=== PATIENT | male | born 2000 | race Hispanic/Latino ===

== ENCOUNTER 2024-08-11 17:18 | Inpatient (IN) | payer SELFPAY ==
[2024-08-11 20:23] LABS: Absolute Eosinophils 0.1 K/uL (0-0.5); Absolute Lymphocytes (CBC) 2.7 K/uL (0.7-4.9); Absolute Neutrophil 5.7 K/uL (1.8-8.0); Basophils % 0.2 % (0-1.3); Eosinophils % 0.6 % (0-4.4); Hemoglobin 11.2 g/dL (13.6-17.9); Lymphocytes % 28.2 % (15.3-44.8); MCH 28.7 pg (27.0-35.0); MCHC 33.8 g/dL (32.0-36.0); MCV 84.8 fL (80-100); MPV 6.9 fL (7.6-11.3); Monocytes % 10.8 % (3.3-12.3); Neutrophils % 60.2 % (41.7-73.7); Nucleated Red Blood Cells % 0.1 % (0-0); Platelets 387 thou/uL (152-406); RBC Red Blood Cell Count 3.89 M/uL (4.33-5.43); Red Cell Distribution Width 14.1 % (12.1-15.2)
[2024-08-11 20:36] LABS: PT Prothrombin Time 13.3 SECONDS (9.4-12.5); Protime INR 1.19
[2024-08-11 20:43] LABS: Albumin 4.1 g/dL (3.4-5.0); Anion Gap 6.7 mEq/L (5.0-15.0); Bilirubin Total 0.3 mg/dL (0.2-1.0); Potassium 3.7 mEq/L (3.5-5.1); Protein, Total 8.1 g/dL (6.4-8.2)
[2024-08-11] MEDS ORDERED: NA CHLORIDE 0.9% 50 ML ONE (20:54)
[2024-08-11] MEDS ORDERED: PANTOPRAZOLE 40 MG INJ ONE (20:54)
[2024-08-11] MEDS ORDERED: NA CHLORIDE 0.9% 1,000 ML ONE (20:54)
[2024-08-11 21:07] LABS: Specific Gravity 1.021 (1.005-1.030); Urine Bilirubin NEGATIVE (Negative); Urine Blood Negative (Negative); Urine Clarity Clear (Clear); Urine Color Colorless (Yellow); Urine Glucose NEGATIVE (Negative); Urine Ketones NEGATIVE (Negative); Urine Microscopic Reflex YN NO UMIC; Urine Nitrite NEGATIVE (Negative); Urine Protein NEGATIVE (Negative); Urine Urobilinogen Normal (Normal); Urine pH 6.5 (5.0-7.0)
--- NOTE | 2024-08-11 21:51 | RAD REPORT ---
EXAMINATION: CT Abdomen Pelvis W Contrast CLINICAL INDICATION: Male, 24 years old. GI BLEED TECHNIQUE: CT abdomen and pelvis was performed, after the administration of IV contrast, as per [facility] protocol. Axial, sagittal and coronal reconstructions were obtained. One or more of the following dose reduction techniques were used: Automated exposure control, adjustment of the mA and k V according to patient size, and iterative reconstruction. Unless otherwise specified, incidental findings do not require dedicated imaging follow-up. COMPARISON: No prior exam. FINDINGS: LOWER CHEST: The visualized lung bases are clear. LIVER: Normal in size and contour. Innumerable small hypoattenuating parenchymal lesions, largest piedad suring 11 mm, suggestive of cysts although difficult to characterize given small size. No other suspicious focal lesion. BILIARY SYSTEM: No suspicious abnormalities. SPLEEN: Normal size. No focal lesion. PANCREAS: No mass, ductal dilation, or kamla-pancreatic fluid. ADRENALS: Normal; no mass. KIDNEYS: Normal size and contour. No hydronephrosis. URINARY BLADDER: Unremarkable. GASTROINTESTINAL TRACT: No evidence of free air, significant intra-abdominal free fluid, bowel obstru ction or abscess. APPENDIX: Normal appendix. LYMPH NODES: No lymphadenopathy. MUSCULOSKELETAL: No acute or suspicious osseous abnormality. ADDITIONAL FINDINGS: None. IMPRESSION: No acute or concerning abnormalities seen in the abdomen or pelvis. Incidentally noted presumed numerous small liver cysts, overall benign in appearance.
[2024-08-11 23:02] LABS: Hematocrit 23.6 % (39.6-49.0); Hemoglobin 7.9 g/dL (13.6-17.9); MCH 28.4 pg (27.0-35.0); MCHC 33.2 g/dL (32.0-36.0); MCV 85.6 fL (80-100); MPV 7.5 fL (7.6-11.3); Platelets 305 thou/uL (152-406); RBC Red Blood Cell Count 2.76 M/uL (4.33-5.43)
--- NOTE | 2024-08-11 23:09 | EDPHYS ---
Physician Documentation [facility] Name: Dk Brand Age: 24 yrs Sex: Male : 2000 Arrival Date: 08/11/2024 Time: 17:18 Bed 17 Private MD: ED Physician Juan Foreman HPI: 08/11 18:24 This 24 yrs old Male presents to ER via Ambulatory with complaints of Vomiting sb4 blood. 18:24 Patient states that he has had dark stools for 2 days now and started experiencing sb4 blood in his vomit last night. States that this has happened in the past before and he was diagnosed with gastric ulcers. States that he is not on any medications daily. Denies requiring any blood transfusions in the past. He does report some intermittent epigastric pain. He denies any alcohol use or history of liver disease. Historical: - Allergies: 18:20 No Known Allergies; ss - Home Meds: 18:20 None [Active]; ss - PMHx: 18:20 None; ss - PSHx: 18:20 None; ss - Immunization history:: Adult Immunizations up to date. - Infectious Disease History:: Denies. - Social history:: Smoking status: Patient denies any tobacco usage or history of. Patient/guardian denies using alcohol. ROS: 18:25 Constitutional: Negative for fever, chills, and weight loss, sb4 18:25 Abdomen/GI: Positive for abdominal pain, hematemesis, Melena, 18:25 All other systems are negative, Exam: 18:26 Constitutional: This is a well developed, well nourished patient who is awake, alert, sb4 and in no acute distress. Head/Face: Normocephalic, atraumatic. Eyes: Extra-ocular motions intact. Periorbital areas with no swelling, redness, or edema. ENT: Mucous membranes moist. Respiratory: No increased work of breathing, no retractions or nasal flaring. Abdomen/GI: Soft, non-tender, no distension. Skin: Warm, dry with normal turgor. Normal color with no rashes, no lesions, and no evidence of cellulitis. 18:26 Cardiovascular: Rate: tachycardic, Rhythm: regular, Vital Signs: 18:17 BP 134 / 93; Pulse 113; Resp 16; Temp 98.4(TE); Pulse Ox 100% on R/A; Height 5 ft. 3 ss in. ; Pain 6/10; 23:48 BP 108 / 62; Pulse 100; Resp 17; Pulse Ox 100% on R/A; rg5 08/12 00:10 BP 110 / 67; Pulse 76; Resp 17; Pulse Ox 100% on R/A; rg5 01:00 BP 107 / 68; Pulse 72; Resp 18; Pulse Ox 100% on R/A; Pain 0/10; rg5 08/11 18:17 Pain Scale: Adult ss 01:00 Pain Scale: Adult [facility] MDM: 08/11 18:22 Medical Screening Exam initiated sb4 23:08 Data reviewed: vital signs, nurses notes, lab test result(s), radiologic studies, and sb4 as a result, I will admit patient. Consideration of Admission/Observation Patient was admitted/placed on observation. Counseling: I had a detailed discussion with the patient and/or guardian regarding the historical points, exam findings, and any diagnostic results supporting the discharge/admit diagnosis, lab results, radiology results, the need for further work-up and treatment in the hospital. 23:22 Management of patient was discussed with the following: After School Driver: Dr. Pino, agrees sb4 to consult. 08/11 18:23 Order name: CBC with Diff; Complete Time: 20:31 sb4 08/11 18:23 Order name: CMP; Complete Time: 20:43 sb4 08/11 18:23 Order name: Lipase; Complete Time: 20:43 sb4 08/11 18:23 Order name: Urinalysis w/ reflexes; Complete Time: 21:08 sb4 08/11 18:23 Order name: Type And Screen sb4 08/11 18:23 Order name: PT-INR; Complete Time: 20:38 sb4 08/11 18:23 Order name: Ptt, Activated; Complete Time: 20:38 sb4 08/11 21:51 Order name: CBC w/o diff; Complete Time: 23:04 sb4 08/12 00:03 Order name: Creatine Phosphokinase EDMO 08/12 00:03 Order name: Lactate w/ 2H reflex if indic. EDMO 08/12 00:03 Order name: Liver (Hepatic) Function EDMO 08/12 00:03 Order name: Magnesium EDMO 08/12 00:03 Order name: Phosphorus EDMO 08/12 00:03 Order name: Thyroid Stimulating Hormone EDMO 08/12 00:03 Order name: Urinalysis w/ reflexes EDMO 08/12 00:04 Order name: Gastrin EDMO 08/12 00:05 Order name: H.PYLORI AG EDMO 08/12 02:39 Order name: CBC with Automated Diff EDMO 08/12 05:33 Order name: Ghost Lactate-NO COLLECT Timer EDMO 08/12 08:04 Order name: Lactate Sepsis 2 HR Follow-up EDMO 08/12 08:37 Order name: ABO/RH no charge EDMO 08/11 18:23 Order name: CT Abd/Pelvis - IV Contrast Only; Complete Time: 21:51 sb4 08/12 00:03 Order name: CONS Physician Consult EDMO 08/11 18:23 Order name: IV Saline Lock; Complete Time: 20:52 sb4 08/11 18:23 Order name: Labs collected and sent; Complete Time: 20:52 sb4 Administered Medications: 21:02 Drug: NS 0.9% IV 1000 ml IV at 1 bolus Per protocol; to be given as a bolus over 60 vc1 minutes Route: IV; Rate: 1 bolus; Site: right antecubital; 22:00 Follow up: IV Status: Completed infusion; IV Intake: 1000ml vc1 21:02 Drug: Pantoprazole IVP 40 mg IVP once Route: IVP; Site: right antecubital; vc1 21:30 Follow up: Response: No adverse reaction vc1 23:40 Drug: Pantoprazole IV 8 mg/hr IV at 25 ml/hr continuous; (Standard dilution is 80 mg in rg5 250 mL NS) Route: IV; Rate: 25 ml/hr; Site: right antecubital; Disposition Summary: 08/11/24 23:09 Hospitalization Ordered Notes: Hospitalization Status: Inpatient Admission sb4 Provider: David Lenz sbNaomi Condition: Fair sb4 Problem: new sb4 Symptoms: have worsened sb4 Bed/Room Type: Standard sb4 Location: Intensive Care Unit(08/12/24 10:48) bd Room Assignment: 6-(08/12/24 10:48) bd Diagnosis - GI Bleed/ Gastrointestinal hemorrhage, unspecified sb4 - Anemia, unspecified sb4 Forms: - Medication Reconciliation Form sb4 - SBAR form sb4 - Leadership Thank You Letter sb4 Signatures: Dispatcher [employer] EDMS July Jenkins bd Susan Dwyer, RN RN ss Carey Thrasher, RN RN vc1 Vaishnavi Greer, PARafaelaC PARafaelaC sb4 Goldberg Kassie rv1 Sujit Crandall, RN RN rg5 Corrections: (The following items were deleted from the chart) 18:24 18:24 CBC+H.LAB.BRZ ordered. EDMS EDMS 18:24 18:24 COMPREHENSIVE METABOLIC PANEL+C.LAB.BRZ ordered. EDMS EDMS 18:24 18:24 LIPASE+C.LAB.BRZ ordered. EDMS EDMS 18:24 18:24 Urinalysis+U.LAB.BRZ ordered. EDMS EDMS 18:24 18:24 TYPE AND SCREEN+BB.LAB.BRZ ordered. EDMS EDMS 18:24 18:24 PROTIME (+INR)+COAG.LAB.BRZ ordered. EDMS EDMS 18:24 18:24 PTT, ACTIVATED+COAG.LAB.BRZ ordered. EDMS EDMS 18:24 18:24 Abdomen Pelvis W Con+CT.RAD.BRZ ordered. EDMS EDMS 23:27 23:09 Telemetry/MedSurg (Inpatient) sb4 rv1 23:27 23:09 sb4 rv1 08/12 10:48 08/11 23:27 [facility] ER HOLD rv1 bd 08/12 10:48 08/11 23:27 ERHOLD- rv1 bd
--- NOTE | 2024-08-11 23:09 | ER ---
Nurse's Notes [facility] Name: Dk Brand Age: 24 yrs Sex: Male : 2000 Arrival Date: 08/11/2024 Time: 17:18 Bed 17 Private MD: Diagnosis: GI Bleed/ Gastrointestinal hemorrhage, unspecified;Anemia, unspecified Presentation: 08/11 18:17 Chief complaint: Patient states: Vomiting dark blood that began at midnight, stopped at ss 4 am and dark stools since yesterday. Pt reports a hx of peptic ulcers since he was 5 and a similar that occurred 1 year ago. Coronavirus screen: Client denies travel out of the [place] in the last 14 days. Ebola Screen: Patient denies exposure to infectious person. Patient denies travel to an Ebola-affected area in the 21 days before illness onset. Initial Sepsis Screen: Does the patient meet any 2 criteria? No. Patient's initial sepsis screen is negative. Does the patient have a suspected source of infection? No. Patient's initial sepsis screen is negative. Risk Assessment: Do you want to hurt yourself or someone else? Patient reports no desire to harm self or others. Onset of symptoms was August 10, 2024. 18:17 Method Of Arrival: Ambulatory ss 18:17 Acuity: MANJIT 3 ss Triage Assessment: 19:30 General: Appears in no apparent distress. uncomfortable, slender, well groomed, vc1 Behavior is calm, cooperative, appropriate for age. GI: Reports vomiting, vomiting blood. Historical: - Allergies: 18:20 No Known Allergies; ss - Home Meds: 18:20 None [Active]; ss - PMHx: 18:20 None; ss - PSHx: 18:20 None; ss - Immunization history:: Adult Immunizations up to date. - Infectious Disease History:: Denies. - Social history:: Smoking status: Patient denies any tobacco usage or history of. Patient/guardian denies using alcohol. Screenin:30 [facility] ED Fall Risk Assessment (Adult) History of falling in the last 3 months, vc1 including since admission No falls in past 3 months (0 pts) Confusion or Disorientation No (0 pts) Intoxicated or Sedated No (0 pts) Impaired Gait No (0 pts) Mobility Assist Device Used No (0 pt) Altered Elimination No (0 pt) Score/Fall Risk Level 0 - 2 = Low Risk Oriented to surroundings, Maintained a safe environment, Educated pt \T\ family on fall prevention, incl call for assistance when getting out of bed. Abuse screen: Denies threats or abuse. Nutritional screening: No deficits noted. Tuberculosis screening: No symptoms or risk factors identified. Vital Signs: 18:17 BP 134 / 93; Pulse 113; Resp 16; Temp 98.4(TE); Pulse Ox 100% on R/A; Height 5 ft. 3 ss in. ; Pain 6/10; 23:48 BP 108 / 62; Pulse 100; Resp 17; Pulse Ox 100% on R/A; rg5 08/12 00:10 BP 110 / 67; Pulse 76; Resp 17; Pulse Ox 100% on R/A; rg5 01:00 BP 107 / 68; Pulse 72; Resp 18; Pulse Ox 100% on R/A; Pain 0/10; rg5 08/11 18:17 Pain Scale: Adult ss 01:00 Pain Scale: Adult rg5 ED Course: 08/11 17:22 Patient arrived in ED. mr 17:24 Vaishnavi Greer PA-C is PHCP. sb4 17:24 Juan Foreman MD is Attending Physician. sb4 18:20 Triage completed. ss 18:20 Arm band placed on right wrist. ss 19:30 Patient has correct armband on for positive identification. Bed in low position. Call vc1 light in reach. Pulse ox on. NIBP on. 21:19 CT Abd/Pelvis - IV Contrast Only In Process Unspecified. EDMS 22:54 CBC w/o diff Sent. vk 22:55 Inserted saline lock: 20 gauge in right antecubital area, using aseptic technique. vk Blood collected. Flushed with 10 mL NS. 23:08 David Lenz is Hospitalizing Provider. sb4 23:47 Sujit Crandall, SHAYNA is Primary Nurse. rg5 08/12 02:00 Provided Education on: needs for admit. rg5 02:00 No provider procedures requiring assistance completed. Patient admitted, IV remains in rg5 place. 05:00 Warm blanket given. oe Administered Medications: 08/11 21:02 Drug: NS 0.9% IV 1000 ml IV at 1 bolus Per protocol; to be given as a bolus over 60 vc1 minutes Route: IV; Rate: 1 bolus; Site: right antecubital; 22:00 Follow up: IV Status: Completed infusion; IV Intake: 1000ml vc1 21:02 Drug: Pantoprazole IVP 40 mg IVP once Route: IVP; Site: right antecubital; vc1 21:30 Follow up: Response: No adverse reaction vc1 23:40 Drug: Pantoprazole IV 8 mg/hr IV at 25 ml/hr continuous; (Standard dilution is 80 mg in rg5 250 mL NS) Route: IV; Rate: 25 ml/hr; Site: right antecubital; Medication: 19:30 VIS not applicable for this client. vc1 Intake: 22:00 IV: 1000ml; Total: 1000ml. vc1 Outcome: 23:09 Decision to Hospitalize by Provider. sb4 11 02:00 Admitted to ER Hold. Please see Clicker for further documentation. rg5 Condition: stable Instructed on the need for admit, 12:01 Patient left the ED. ph Signatures: Dispatcher [employer] EDKS Andria Clemens, Reg Reg mr Susan Dwyer, RN RN ss Shanthi Bazan RN RN ph Nicko Baldrerama Vanessa, RN RN vc1 Vaishnavi Greer PA-C PA-C sb4 Ayala Kaufman Rommel, RN RN rg5
[2024-08-11] MEDS: NA CHLORIDE 0.9% 1,000 ML IV SCH (23:45)
[2024-08-11] MEDS ORDERED: ACETAMINOPHEN 325 MG TABLET PO PRN (23:58)
[2024-08-11] MEDS ORDERED: ONDANSETRON 4 MG/2 ML VIAL IV PRN (23:58)
[2024-08-12] MEDS ORDERED: SODIUM CHLORIDE 0.9% 10ML INJ IV PRN (00:03)
--- NOTE | 2024-08-12 00:16 | P.HP ---
Certification for Inpatient With expected LOS: <2 Midnights Practitioner: I am a practitioner with admitting privileges, knowledge of patient current condition, hospital course, and medical plan of care. Services: Services provided to patient in accordance with Admission requirements found in Title 42 Section 412.3 of the Code of Federal Regulations Patient History Date of Service: 08/12/24 Reason for admission: GI bleed History of Present Illness: 24-year-old man with a past medical history significant for gastric ulcers [facility] complaining of hematemesis x 1 day. The patient is Qatari-speaking, and language line interpretation services were utilized for Qatari interpretation. Language ID [id number]. The patient states he began vomiting coffee ground contents last night. Also, he reports dark stools for the past 2 days consistent with melena. He denies hematochezia. The patient has not attempted anything to alleviate his vomiting and states nothing worsens. Patient states he is a never smoker and does not drink alcohol. Home medications list reviewed: Yes (none) - Past Medical/Surgical History Diabetic: No -: gastric ulcers Past Surgical History: Patient denies surgical history - Family History Family History: Reviewed- Non-Contributory - Social History Smoking Status: Never smoker Alcohol use: No Review of Systems Gastrointestinal: Vomiting, Abdominal Pain, Melena Physical Examination - Vital Signs Temperature: 98.4 F Blood Pressure: 108/62 Pulse: 78 Respirations: 18 Pulse Ox (%): 100 (on room air) - Physical Exam General: Alert, Oriented x3 HEENT: Atraumatic, Normocephalic Neck: JVD not distended Respiratory: Clear to auscultation bilaterally Cardiovascular: No edema, Regular rate/rhythm, No gallops, No rubs, No murmurs Gastrointestinal: Normal bowel sounds, Non-distended, Tenderness (epigrastric abdominal quadrant) Musculoskeletal: No swelling, No erythema, No tenderness, No warmth Neurological: Normal strength at 5/5 x4 extr, Sensation intact - Studies Laboratory Data (last 24 hrs) 08/11/24 08/11/24 08/11/24 22:48 20:11 20:11 WBC 7.70 Hgb 7.9 L D Hct 23.6 L Plt Count 305 PT 13.3 H INR 1.19 APTT 37.0 H Sodium 137 Potassium 3.7 BUN 19 H Creatinine 0.73 Glucose 85 Total Bilirubin 0.3 AST 14 L ALT 19 Alkaline Phosphatase 50 Lipase 21 08/11/24 20:11 WBC 9.50 Hgb 11.2 L Hct 33.0 L Plt Count 387 PT INR APTT Sodium Potassium BUN Creatinine Glucose Total Bilirubin AST ALT Alkaline Phosphatase Lipase Assessment and Plan - Problems (Diagnosis) (1) GI (gastrointestinal bleed) Current Visit: Yes Status: Acute Qualifiers: GI bleed type/associated pathology: melena Qualified Code(s): K92.1 - Melena - Plan Upper GI bleed: Gastroenterology consulted- Dr. Pino NPO diet IVF ordered Pantoprazole ordered Type and screen ordered H. pylori test ordered Gastrin level ordered Lab work ordered to trend Nursing order placed to transfuse if morning lab hemoglobin returns less than 7 - Advance Directives Does patient have a Living Will: No Does patient have a Durable POA for Healthcare: No
[2024-08-12] MEDS ORDERED: NA CHLORIDE 0.9% 250 ML ONE ×2 (00:17→02:30)
[2024-08-12] MEDS ORDERED: PANTOPRAZOLE 40 MG INJ ONE ×2 (00:17→09:44)
[2024-08-12 02:34] LABS: Absolute Eosinophils 0.1 K/uL (0-0.5); Absolute Lymphocytes (CBC) 2.8 K/uL (0.7-4.9); Absolute Monocytes 0.9 K/uL (0.1-1.3); Absolute Neutrophil 4.4 K/uL (1.8-8.0); Basophils % 0.3 % (0-1.3); Eosinophils % 1.4 % (0-4.4); Hematocrit 29.5 % (39.6-49.0); Hemoglobin 9.9 g/dL (13.6-17.9); Lymphocytes % 34.2 % (15.3-44.8); MCH 28.8 pg (27.0-35.0); MCHC 33.6 g/dL (32.0-36.0); MCV 85.5 fL (80-100); MPV 7.4 fL (7.6-11.3); Monocytes % 10.6 % (3.3-12.3); Neutrophils % 53.5 % (41.7-73.7); Platelets 331 thou/uL (152-406); RBC Red Blood Cell Count 3.45 M/uL (4.33-5.43); Red Cell Distribution Width 14.1 % (12.1-15.2)
[2024-08-12 02:57] LABS: ALT/SGPT 17 U/L (16-61); AST/SGOT 14 U/L (15-37); Albumin 3.6 g/dL (3.4-5.0); Albumin/Globulin Ratio 1.1 (1.1-1.8); Alkaline Phosphatase 43 U/L (45-117); Bilirubin Total 0.3 mg/dL (0.2-1.0); Creatine Phosphokinase 82 U/L (39-308); Globulin 3.4 g/dL (2.3-3.5); Magnesium 2.1 mg/dL (1.6-2.4); Phosphorus 2.8 mg/dL (2.5-4.9)
[2024-08-12 03:30] LABS: Bilirubin Direct < 0.2 mg/dL (0-0.2); Bilirubin Indirect, Calculated 0.1 mg/dL (0.2-0.8)
[2024-08-12 05:01] VITALS: BMI 20.3
[2024-08-12] MEDS ORDERED: NA CHLORIDE 0.9% 1,000 ML ONE (05:08)
[2024-08-12] MEDS: PANTOPRAZOLE 40 MG INJ IVP SCH (09:00)
[2024-08-12] MEDS ORDERED: ENOXAPARIN 40 MG/0.4 ML SQ SCH (09:00)
[2024-08-12 12:08] VITALS: O2SAT 100
[2024-08-12] MEDS ORDERED: propofoL 200 MG/20 ML VIAL IV ONE (13:41)
[2024-08-12] MEDS ORDERED: LIDOCAINE 1% MPF 5 ML VIAL ONE (13:41)
[2024-08-12] MEDS: EPINEPHRINE 1 MG/ML VIAL SQ ONE (14:05)
[2024-08-12] MEDS ORDERED: EPINEPHRINE 1 MG/ML VIAL ONE (14:20)
[2024-08-12] MEDS: PANTOPRAZOLE INJ 80 MG in NA CHLORIDE 0.9% 250 ML IV SCH (15:06)
--- NOTE | 2024-08-12 17:54 | P.PN ---
Subjective Date of Service: 08/12/24 Chief Complaint: GI bleed Patient seen after endoscopy today. He currently denies abdominal pain and he is tolerating clear liquid diet. Physical Examination - Vital Signs Temperature: 98.4 F Blood Pressure: 109/60 Pulse: 73 Respirations: 15 Pulse Ox (%): 100 - Studies Laboratory Data (last 24 hrs) 08/11/24 08/11/24 08/11/24 22:48 20:11 20:11 WBC 7.70 Hgb 7.9 L D Hct 23.6 L Plt Count 305 PT 13.3 H INR 1.19 APTT 37.0 H Sodium 137 Potassium 3.7 BUN 19 H Creatinine 0.73 Glucose 85 Total Bilirubin 0.3 AST 14 L ALT 19 Alkaline Phosphatase 50 Lipase 21 08/11/24 20:11 WBC 9.50 Hgb 11.2 L Hct 33.0 L Plt Count 387 PT INR APTT Sodium Potassium BUN Creatinine Glucose Total Bilirubin AST ALT Alkaline Phosphatase Lipase Assessment And Plan - Plan Physical examination General: Alert and oriented x3, NAD, HEENT: Conjunctiva not pale, anicteric sclera Neck: Supple, no elevated JVD Heart: Heart sounds 1 and 2 normal, regular rhythm, normal rate, no pedal edema Lungs: Clear to auscultation bilaterally, adequate breath sounds bilaterally, no rhonchi or crackles. Abdomen: Soft, nondistended, mild epigastric tenderness, normal bowel sounds. Extremities: No tenderness, no deformity Skin: Normal skin turgor, no rash, no nodules or ulcers. Neuro: No focal motor deficit. Normal speech. Psychiatry: Normal mood, no agitation. Diagnosis Upper GI bleed History of peptic ulcer Acute blood loss anemia Plan: Upper GI bleed History of peptic ulcer GI Dr. Pino input appreciated. Status post EGD today, patient noted to have a couple of duodenal ulcers and gastritis. Continue IV Protonix Patient started on clear liquid diet. Monitor overnight. Follow-up biopsy and H. pylori testing results. Acute blood loss anemia secondary to GI bleed Status post 1 unit PRBC transfusion. Monitor H&H and transfuse as needed for hemoglobin less than 7. DVT prophylaxis: Low risk, patient to ambulate.
[2024-08-12 18:41] LABS: Hemoglobin 9.5 g/dL (13.6-17.9)
--- NOTE | 2024-08-12 19:29 | CON ---
Date of Consultation: 08/12/2024 Reason For Consultation: Upper GI bleed with coffee-ground emesis, nausea, vomiting, and melena. History Of Present Illness: The patient is a 24-year-old male with history of recurrent upp er GI peptic ulcer disease, bleeding in 2019 and 2021 in [place]. The patient presents to the [facility] with coffee-grounds emesis and melena with nausea, vomiting. Hemoglobin initially 11.2, down to 7. 9 on admission. With blood transfusion went up to 9.9. The patient noted a recurrent history in [facility] of peptic ulcer disease with bleed in 2019 and 2021. Also, his mother has a history of bleeding peptic ulcer disease as well. He denies any excessive aspirin, ibuprofen, or other agents that may h ave caused him to bleed. No illicit drugs. No history of Helicobacter pylori, nothing that he knows of that could be causing this ulcer bleeding. Past Medical History: Significant for peptic ulcer disease with bleeding in [place] in 2019 and 2021. Medications: No medications. Allergies: NKDA. Social History: Single, though he has a girlfriend at bedside, who is with his first child. No tobacco. No alcohol. No illicit drugs. Family History: Father alive and well. Mother alive with history of bleeding peptic ulcer disease i n the past. Review of Systems: The patient has nausea, vomiting, coffee-ground emesis, melena. Denies any syncope, presyncope, abdo natividad pain, fevers, chills, night sweats, change in weight, diarrhea, constipation, muscle aches, philip nt aches, backaches, illicit drugs, anxiety, depression, or other. Physical Examination: Vital Signs: The patient is 5 feet 3 inches, 115 pounds. BMI of 20.4 kg/sq m. Temperature 97.2 deg josy Fahrenheit, pulse 64, respirations 15, blood pressure 104/58, O2 saturation 100%. HEENT: Normocephalic, atraumatic. Anicteric. Pupils equal, round, and reactive to light. Anicteri c. Oropharynx clear. Neck: Supple. No masses. Respirations: Clear to auscultation bilaterally. Cardiac: Regular rate and rhythm. Gastrointestinal: Positive bowel sounds. Soft, nontender, nondistended. No hepatosplenomegaly. Extremities: No clubbing, cyanosis, or edema. 2+ pulses. Neuro: Alert and oriented x3. Grossly nonfocal. 5/5 motor sensation to light touch. Data: The patient has a hemoglobin of 11.2 on admission, down to 7.9; after transfusion of 1 unit, i t is up to 9.9. Has a PT of 13.3, INR of 1.19, PTT of 37.0. Chemistry of 137, potassium 3.7, chlori de 103, bicarb 31, BUN is 19, creatinine of 0.73, glucose 85. Lactate of 2.6, which is elevated and repeat is 1.0, which is normal. Calcium 9.1, phosphorus 2.8, magnesium 2.1, total bilirubin 0.3, dir ect bilirubin less than 0.2, AST of 14, ALT of 17, alkaline phosphatase 43, total protein 7.0, albumi n 3.6, lipase 21. TSH is 3.52, which is normal. UA was negative. Serologies; H pylori on 08/12 was canceled, the other one is pending. CT of abdomen and pelvis revealed no acute finding. Incidental finding of numerous small liver cysts, which have overall benign appearance, the largest cyst being 11 mm. Impression: 1.Upper gastrointestinal bleeding with coffee-grounds emesis, melena, nausea, vomiting. No syncope or presyncope, abdominal pain, fevers, chills, change in weight, diarrhea, constipation, or other. 2.History of peptic ulcer disease with bleeding in [place] in 2019 and 2021. 3.Family history of bleeding ulcers in his mother. 4.Anemia with hemoglobin 7.9, up to 9.9 after transfusion. Recommendation: 1.Patient continue IV fluids with resuscitation. 2.Check serial H and H, and transfuse p.r.n. 3.PPI therapy. 4.Keep patient n.p.o. 5.Urgent need of EGD. 6.Check gastrin level. WS/MODL Voice ID: [id number] Report ID: [id number]
[2024-08-13 07:13] LABS: Absolute Eosinophils 0.1 K/uL (0-0.5); Absolute Lymphocytes (CBC) 1.4 K/uL (0.7-4.9); Absolute Monocytes 0.6 K/uL (0.1-1.3); Absolute Neutrophil 4.6 K/uL (1.8-8.0); Basophils % 0.3 % (0-1.3); Eosinophils % 2.1 % (0-4.4); Hematocrit 25.8 % (39.6-49.0); Hemoglobin 8.6 g/dL (13.6-17.9); MCH 28.9 pg (27.0-35.0); MCHC 33.3 g/dL (32.0-36.0); MCV 86.7 fL (80-100); MPV 7.5 fL (7.6-11.3); Monocytes % 8.9 % (3.3-12.3); Neutrophils % 67.7 % (41.7-73.7); Platelets 221 thou/uL (152-406); RBC Red Blood Cell Count 2.97 M/uL (4.33-5.43)
[2024-08-13 07:34] LABS: Anion Gap 6.8 mEq/L (5.0-15.0); Phosphorus 3.6 mg/dL (2.5-4.9); Potassium 3.8 mEq/L (3.5-5.1)
[2024-08-13] MEDS: PANTOPRAZOLE 40MG TABLET PO SCH (09:11)
[2024-08-13 11:50] VITALS: BP 124/63; TEMP 97.1
--- NOTE | 2024-08-13 14:09 | P.DS ---
Admission Date: 08/11/24 Discharge Date: 08/13/24 Disposition: ROUTINE DISCHARGE Discharge Condition: FAIR Reason for Admission: GI bleed Brief History of Present Illness: 24-year-old man with a past medical history significant for gastric ulcers presented to the emergency room tonight complaining of hematemesis x 1 day. Patient also reported dark stools for 2 days consistent with melena. Patient states he is a never smoker and does not drink alcohol. Patient's hemoglobin dropped while in the ED. He was admitted for further management. Hospital Course: Patient was admitted to the medical floor and the following medical problems addressed: Diagnosis Upper GI bleed History of peptic ulcer Acute blood loss anemia Upper GI bleed History of peptic ulcer GI Dr. Pino evaluated patient and performed EGD. EGD reported a couple of duodenal ulcers and gastritis. Patient treated with IV Protonix drip and transition to oral proton. He also tolerated diet advancement to soft consistency. No more vomiting, no more hematemesis or melena. Patient denies abdominal pain. Vitals are stable. Patient deemed stable for discharge. Patient has been informed to follow-up with Dr. Pino for the biopsy and H. pylori testing results. Acute blood loss anemia secondary to GI bleed Status post 1 unit PRBC transfusion. Hemoglobin improved to 8.6. Patient prescribed iron supplementation. Vital Signs/Physical Exam: Temp Pulse Resp BP Pulse Ox 97.1 F 68 16 124/63 100 08/13/24 11:48 08/13/24 11:48 08/13/24 11:48 08/13/24 11:48 08/13/24 11:48 General: Alert, In no apparent distress, Oriented x3 HEENT: Mucous membr. moist/pink, Sclerae nonicteric Neck: Supple, JVD not distended Respiratory: Clear to auscultation bilaterally, Normal air movement Cardiovascular: No edema, Normal pulses, Regular rate/rhythm Gastrointestinal: Normal bowel sounds, Soft and benign, Non-distended, No tenderness Musculoskeletal: No swelling Integumentary: No rashes, No tenderness/swelling, No cyanosis Neurological: Normal strength at 5/5 x4 extr Laboratory Data at Discharge: WBC 6.70 thou/uL (4.3-10.9) 08/13/24 06:35 Hgb 8.6 g/dL (13.6-17.9) L D 08/13/24 06:35 Hct 25.8 % (39.6-49.0) L 08/13/24 06:35 Plt Count 221 thou/uL (152-406) 08/13/24 06:35 PT 13.3 SECONDS (9.4-12.5) H 08/11/24 20:11 INR 1.19 08/11/24 20:11 APTT 37.0 SECONDS (24.3-36.9) H 08/11/24 20:11 Sodium 139 mEq/L (136-145) 08/13/24 06:35 Potassium 3.8 mEq/L (3.5-5.1) 08/13/24 06:35 BUN 11 mg/dL (7-18) 08/13/24 06:35 Creatinine 0.78 mg/dL (0.70-1.30) 08/13/24 06:35 Glucose 92 mg/dL (74-106) 08/13/24 06:35 Phosphorus 3.6 mg/dL (2.5-4.9) 08/13/24 06:35 Magnesium 2.0 mg/dL (1.6-2.4) 08/13/24 06:35 Total Bilirubin 0.3 mg/dL (0.2-1.0) 08/12/24 02:07 AST 14 U/L (15-37) L 08/12/24 02:07 ALT 17 U/L (16-61) 08/12/24 02:07 Alkaline Phosphatase 43 U/L (45-117) L 08/12/24 02:07 Lipase 21 U/L (13-75) 08/11/24 20:11 Home Medications: Ferrous Sulfate 325 mg PO BID #60 tab 08/13/24 Pantoprazole [Protonix Tab*] 40 mg PO BIDAC #60 tab 08/13/24 New Medications: Ferrous Sulfate 325 mg PO BID #60 tab Pantoprazole [Protonix Tab*] 40 mg PO BIDAC #60 tab Diet: Regular Activity: Ad anmol Followup: NONE,NONE [Primary Care Provider] - Rober Pino MD [ASSOCIATE-ACTIVE - CAN ADMIT] - 1-2 Weeks (Follow up for biopsy and H. pylori results.) Time spent managing pt's care (in minutes): 35
== END 2024-08-13 15:06 | disposition home or self-care (01) | DRG 378 ==
LOC: ER 17:18 → ERHOLD 23:58 → 3RD-ICU 08-12 11:09 → 2ND 08-13 08:11
PROVIDERS: ADMIT Internal Medicine; ATTEND Internal Medicine
PROC: 0DB78ZX Excision of Stomach, Pylorus, Via Natural or Artificial Opening Endoscopic, Diagnostic (ICD-10-PCS; 2024-08-12)
PROC: 30233N1 Transfusion of Nonautologous Red Blood Cells into Peripheral Vein, Percutaneous Approach (ICD-10-PCS; 2024-08-12)
PROC: 0DB68ZX Excision of Stomach, Via Natural or Artificial Opening Endoscopic, Diagnostic (ICD-10-PCS; principal; 2024-08-12 13:53)
DX: K29.01 Acute gastritis with bleeding (principal); D62 Acute posthemorrhagic anemia; K26.0 Acute duodenal ulcer with hemorrhage; K44.9 Diaphragmatic hernia without obstruction or gangrene; B96.81 Helicobacter pylori [H. pylori] as the cause of diseases classified elsewhere
CPT/HCPCS: 36415; 74177; 80048; 80053; 80076; 81003; 82550; 82941; 83605; 83690; 83735; 84100; 84443; 85014; 85018; 85025; 85027; 85610; 85730; 86850; 86900; 86901; 86920; 87338; 88305; 88312; 96361; 96374; 99285; J0171; J2003; J2470; J2704; J7030; J7050; P9016; Q9967

== ENCOUNTER 2025-02-13 16:26 | Emergency (ER) | payer SELFPAY ==
--- OUTSIDE RECORDS SUMMARY | 2025-02-13 16:29 | XMS REPORT | Continuity of Care Document ---
Author Name Unknown Address [address] [facility] [address] [place], [place] [id number] [place] [address] Address [address] [facility] [address] [place] [address] Care Team Providers Care Stacker Attendant Name Role Phone Unavailable Unavailable Unavailable Encounters Start Date/Time End Date/Time Encounter Type Admission Type Attending Clinicians Care Facility Care Department Encounter ID Source 2024-08-11 10:07:10 2024-08-11 10:07:10 Outpatient [facility] [id number] Everette Santizo
[2025-02-13] MEDS ORDERED: NA CHLORIDE 0.9% 1,000 ML ONE (17:34)
[2025-02-13] MEDS ORDERED: PANTOPRAZOLE 40 MG INJ ONE ×2 (17:34→19:19)
[2025-02-13] MEDS ORDERED: METOCLOPRAMIDE 10 MG/2mL INJ ONE (17:34)
[2025-02-13 17:40] LABS: Absolute Lymphocytes (CBC) 1.3 K/uL (0.7-4.9); Absolute Monocytes 1.2 K/uL (0.1-1.3); Absolute Neutrophil 11.1 K/uL (1.8-8.0); Basophils % 0.3 % (0-1.3); Eosinophils % 0.3 % (0-4.4); Hematocrit 29.8 % (39.6-49.0); Hemoglobin 9.8 g/dL (13.6-17.9); Lymphocytes % 9.7 % (15.3-44.8); MCH 28.2 pg (27.0-35.0); MCHC 33.1 g/dL (32.0-36.0); MCV 85.4 fL (80-100); Monocytes % 8.5 % (3.3-12.3); Neutrophils % 81.2 % (41.7-73.7); Platelets 299 thou/uL (152-406); RBC Red Blood Cell Count 3.49 M/uL (4.33-5.43); Red Cell Distribution Width 14.7 % (12.1-15.2)
[2025-02-13 17:57] LABS: Specific Gravity 1.022 (1.005-1.030); Urine Bilirubin NEGATIVE (Negative); Urine Blood Negative (Negative); Urine Clarity Clear (Clear); Urine Color Colorless (Yellow); Urine Glucose NEGATIVE (Negative); Urine Ketones NEGATIVE (Negative); Urine Microscopic Reflex YN NO UMIC; Urine Nitrite NEGATIVE (Negative); Urine Protein NEGATIVE (Negative); Urine Urobilinogen Normal (Normal); Urine pH 6.5 (5.0-7.0)
[2025-02-13 17:58] LABS: ALT/SGPT 18 U/L (16-61); Albumin 3.6 g/dL (3.4-5.0); Albumin/Globulin Ratio 1.2 (1.1-1.8); Alkaline Phosphatase 44 U/L (45-117); Anion Gap 7.8 mEq/L (5.0-15.0); BUN Blood Urea Nitrogen 27 mg/dL (7-18); Bicarbonate 29 mEq/L (21-32); Bilirubin Total 0.3 mg/dL (0.2-1.0); Glomerular Filtration Rate 129 ml/min (=/>90); Glucose Level 97 mg/dL (74-106); Potassium 3.8 mEq/L (3.5-5.1); Protein, Total 6.6 g/dL (6.4-8.2); Sodium Level 137 mEq/L (136-145); Troponin High Sensitivity 4.7 pg/mL (<58.9)
--- NOTE | 2025-02-13 17:58 | RAD REPORT ---
EXAM: Chest Single View HISTORY: 24 years Male vomiting COMPARISON: None. FINDINGS: LUNGS/PLEURA: The lungs are clear. No pleural effusions or pneumothorax. No pulmonary edema. CARDIAC/MEDIASTINUM: The cardiac silhouette is within normal limits. UPPER ABDOMEN: No significant abnormality. BONES: No acute abnormality. LINES/TUBES/OTHER: N/A IMPRESSION: No evidence of acute cardiopulmonary disease.
[2025-02-13 18:00] LABS: AST/SGOT < 10 U/L (15-37); Bilirubin Direct < 0.2 mg/dL (0-0.2); Bilirubin Indirect, Calculated 0.1 mg/dL (0.2-0.8)
[2025-02-13 18:20] LABS: Barbiturates NEGATIVE (NEGATIVE); Benzodiazepines NEGATIVE (NEGATIVE); Cocaine NEGATIVE (NEGATIVE); METHAMPHETAM NEGATIVE (NEGATIVE); Methadone NEGATIVE (NEGATIVE); Opiates NEGATIVE (NEGATIVE); Phencyclidine NEGATIVE (NEGATIVE); THC Cannibis NEGATIVE (NEGATIVE)
--- NOTE | 2025-02-13 18:47 | RAD REPORT ---
EXAMINATION: Abdomen Pelvis W Contrast CLINICAL INDICATION: Male, 24 years old.epigastric pain, vomiting TECHNIQUE: CT abdomen and pelvis was performed, after the administration of IV contrast, as per [facility] protocol. Axial, sagittal and coronal reconstructions were obtained. One or more of the following dose reduction techniques were used: Automated exposure control, adjustment of the mA and/o r kV according to patient size, and/or iterative reconstruction. Unless otherwise specified, incidental findings do not require dedicated imaging follow-up. [id number]. COMPARISON: 08/11/24 FINDINGS: LOWER CHEST: No acute process identified.No significant pericardial effusion. UPPER GI: No significant abnormality. LIVER: Benign appearing low density liver lesions. No suspicious mass. GALLBLADDER/BILE DUCTS: No biliary ductal dilatation.? PANCREAS: No mass, ductal dilation, or kamla-pancreatic fluid. SPLEEN: Unremarkable. ADRENALS: No adrenal masses. KIDNEYS AND URETERS: No hydronephrosis.No suspicious renal mass. ABDOMINAL AORTA AND OTHER VESSELS: Normal caliber aorta and IVC. PERITONEUM: No abnormal free fluid. No free air. LYMPH NODES: No pathologic lymphadenopathy. ABDOMINAL WALL: Unremarkable SMALL BOWEL/COLON: Small bowel has normal course and caliber. No colonic wall thickening or pericolon ic inflammatory changes.Normal appendix. URINARY BLADDER: Nonspecific circumferential bladder wall thickening. REPRODUCTIVE ORGANS: No pathologic process. MUSCULOSKELETAL: No acute or suspicious osseous abnormality. ADDITIONAL FINDINGS: None. IMPRESSION: No acute findings within the abdomen or pelvis.
--- NOTE | 2025-02-13 18:57 | EDPHYS ---
Physician Documentation [facility] Name: Dk Brand Age: 24 yrs Sex: Male : 2000 Arrival Date: 02/13/2025 Time: 16:26 Bed 17 Private MD: ED Physician John Bejarano HPI: 02/13 17:15 This 24 yrs old Male presents to ER via EMS with complaints of cp Nausea/Vomiting, Abdominal Pain. 17:15 The patient presents to the emergency department with vomiting, 2 times today, cp described as dark brown, abdominal pain, of the epigastric area. 17:15 Onset: The symptoms/episode began/occurred today. Possible causes: flare up of bowel cp problem, gastric ulcers. Associated signs and symptoms: Pertinent negatives: constipation, diarrhea, fever. Severity of symptoms: in the emergency department the symptoms are unchanged despite home interventions. Patient reports hx of gi bleed with vomiting blood due to gastric ulcers. takes omeprazole. Historical: - Allergies: 17:14 No Known Allergies; kc6 - PMHx: 17:14 GI bleed; kc6 - PSHx: 17:14 None; kc6 - Immunization history:: Adult Immunizations up to date. - Infectious Disease History:: Denies. - Social history:: Smoking status: Reported history of juuling and/or vaping. ROS: 17:20 Constitutional: Negative for body aches, chills, fever, cp 17:20 Eyes: Negative for injury, pain, redness, and discharge, cp 17:20 Cardiovascular: Negative for chest pain, palpitations, 17:20 Respiratory: Negative for cough, shortness of breath, wheezing, 17:20 Abdomen/GI: Positive for abdominal pain, nausea and vomiting, hematemesis, of the epigastric area, 17:20 Neuro: Negative for altered mental status, syncope, near syncope, 17:20 All other systems are negative, Exam: 17:25 Constitutional: The patient appears in no acute distress, alert, awake, cp non-diaphoretic, non-toxic, well developed, well nourished, uncomfortable, 17:25 Head/Face: Normocephalic, atraumatic. cp 17:25 Eyes: Periorbital structures: appear normal, Conjunctiva: normal, no exudate, no injection, Sclera: no appreciated abnormality, Lids and lashes: appear normal, bilaterally, 17:25 ENT: External ear(s): are unremarkable, Nose: is normal, Mouth: Lips: moist, Oral mucosa: moist, Posterior pharynx: Airway: no evidence of obstruction, patent, 17:25 Chest/axilla: Inspection: normal, Palpation: is normal, no crepitus, no tenderness, 17:25 Cardiovascular: Rate: tachycardic, Rhythm: regular, 17:25 Respiratory: the patient does not display signs of respiratory distress, Respirations: normal, no use of accessory muscles, no retractions, labored breathing, is not present, Breath sounds: are clear throughout, no decreased breath sounds, no stridor, no wheezing, 17:25 Abdomen/GI: Inspection: abdomen appears normal, Bowel sounds: active, all quadrants, Palpation: soft, in all quadrants, moderate abdominal tenderness, in the epigastric area, 17:25 Back: pain, is absent, ROM is normal, 17:25 Neuro: Orientation: to person, place \T\ time. Mentation: is normal, Motor: moves all fours, strength is normal, Sensation: is normal, 17:35 ECG was reviewed by the Attending Physician. Vital Signs: 17:12 BP 91 / 71; Pulse 106; Resp 18 S; Temp 98.4(O); Pulse Ox 100% on R/A; Height 5 ft. 3 kc6 in. (R); Pain 3/10; 18:45 BP 100 / 61; Pulse 85; Resp 18 S; Pulse Ox 100% on R/A; kc6 19:00 BP 111 / 65; Pulse 86; Resp 16; Pulse Ox 100% ; al5 19:30 BP 108 / 70; Pulse 86; Resp 16; Pulse Ox 100% ; al5 20:00 BP 108 / 70; Pulse 70; Resp 15; Pulse Ox 100% ; al5 20:30 BP 96 / 62; Pulse 90; Resp 15; Pulse Ox 97% ; al5 17:12 Pain Scale: Adult kc6 MDM: 16:59 Medical Screening Exam initiated cp 19:00 Data reviewed: vital signs, nurses notes, lab test result(s), EKG, radiologic studies, cp CT scan, plain films, and as a result, I will transfer patient for GI services. 19:00 Differential diagnosis: gastritis, viral gastroenteritis, gastroenteritis. cp Consideration of Admission/Observation Patient was admitted/placed on observation. I considered the following discharge prescriptions or medication management in the emergency department Medications were administered in the Emergency Department. See MAR. Independent interpretation of the following test(s) in the Emergency Department EKG: See my EKG interpretation above. Counseling: I had a detailed discussion with the patient and/or guardian regarding the historical points, exam findings, and any diagnostic results supporting the discharge/admit diagnosis, lab results, radiology results, the need to transfer to another facility, for higher level of care. Response to treatment: the patient's symptoms have mildly improved after treatment. 20:00 ED course: consult with DR Geiger, hospitalist at [facility] who will accept patient cp after discussion. 02/13 17:11 Order name: Basic Metabolic Panel; Complete Time: 18:53 cp 02/13 18:54 Interpretation: Normal except: BUN 27; CA 8.3. cp 02/13 17:11 Order name: CBC with Diff; Complete Time: 18:53 cp 02/13 18:54 Interpretation: Normal except: WBC 13.70; RBC 3.49; HGB 9.8; HCT 29.8; ROMA% 81.2; LYM% cp 9.7; NEUT A 11.1. 02/13 17:11 Order name: LFT's; Complete Time: 18:53 cp 02/13 17:11 Order name: Magnesium; Complete Time: 18:53 cp 02/13 17:11 Order name: PT-INR cp 02/13 17:11 Order name: Troponin HS; Complete Time: 18:53 cp 02/13 17:11 Order name: UA Rfx Nikunj Cult if indicated; Complete Time: 18:53 cp 02/13 17:11 Order name: UDS; Complete Time: 18:53 cp 02/13 17:11 Order name: ETOH Level; Complete Time: 18:53 cp 02/13 17:39 Order name: PTT, Activated Partial Thromb; Complete Time: 18:53 EDMS 02/13 17:11 Order name: XRAY Chest (1 view); Complete Time: 18:53 cp 02/13 17:36 Order name: CT Abd/Pelvis - IV Contrast Only; Complete Time: 18:53 cp 02/13 17:11 Order name: Cardiac monitoring; Complete Time: 17:32 cp 02/13 17:11 Order name: EKG - Nurse/Tech; Complete Time: 17:32 cp 02/13 17:11 Order name: IV Saline Lock; Complete Time: 17:15 cp 02/13 17:11 Order name: Labs collected and sent; Complete Time: 17:32 cp 16 17:11 Order name: O2 Per Protocol; Complete Time: 17:15 cp 02/13 17:11 Order name: O2 Sat Monitoring; Complete Time: 17:15 cp EC:35 Rate is 96 beats/min. Rhythm is regular. WV interval is normal. QRS interval is normal. cp QT interval is normal. T waves are Inverted in lead aVR. Interpreted by me. Reviewed by me. Administered Medications: 17:40 Drug: NS 0.9% IV 1000 ml IV at 1000 ml once; to be given as a bolus over 60 minutes kc6 Route: IV; Rate: 1000 ml; Site: right antecubital; 18:45 Follow up: Response: No adverse reaction; IV Status: Completed infusion; IV Intake: kc6 1000ml 17:40 Drug: metoCLOPramide IVP 10 mg IVP once; over 1 to 2 minutes Route: IVP; Site: right kc6 antecubital; 18:45 Follow up: Response: No adverse reaction kc6 17:41 Drug: Pantoprazole IVP 40 mg IVP once Route: IVP; Site: right antecubital; kc6 18:45 Follow up: Response: No adverse reaction kc6 19:27 Drug: Pantoprazole IVP 40 mg IVP once Route: IVP; Site: right antecubital; al5 21:45 Follow up: Response: No adverse reaction al5 19:27 Drug: Pantoprazole IV 8 mg/hr IV at 25 ml/hr continuous; (Standard dilution is 80 mg in al5 250 mL NS) Route: IV; Rate: 25 ml/hr; Site: right antecubital; 22:28 Follow up: Response: No adverse reaction; IV Status: Infusion continued upon transfer al5 Disposition: 02/14 19:04 Co-signature as Attending Physician, John Bejarano MD I reviewed the patient's care rt provided by the Advanced Practice Provider and agree with the diagnosis and treatment plan. Disposition Summary: 02/13/25 18:56 Transfer Ordered Notes: Reason: Higher level of care cp Condition: Stable cp Problem: new cp Symptoms: have improved cp Transfer Location: [facility](02/13/25 20:13) cp Accepting Physician: DR Geiger(02/13/25 22:28) al5 Diagnosis - Hematemesis cp - Anemia, unspecified cp - GI Bleed/ Gastrointestinal hemorrhage, unspecified cp Forms: - Medication Reconciliation Form cp - SBAR form cp Signatures: Dispatcher [employer] EDMS Juan Shaikh PA PA cp Anahi Mays RN RN kc6 John Bejarano MD MD rt Flora Fontaine RN RN al5 Corrections: (The following items were deleted from the chart) 02/13 17:12 17:12 BASIC METABOLIC PANEL+C.LAB.BRZ ordered. EDMS EDMS 17:12 17:12 CBC+H.LAB.BRZ ordered. EDMS EDMS 17:12 17:12 HEPATIC FUNCTION+C.LAB.BRZ ordered. EDMS EDMS 17:12 17:12 MAGNESIUM+C.LAB.BRZ ordered. EDMS EDMS 17:12 17:12 PROTIME (+INR)+COAG.LAB.BRZ ordered. EDMS EDMS 17:12 17:12 Troponin High Sensitivity+C.LAB.BRZ ordered. EDMS EDMS 17:12 17:12 UA Rfx Nikunj Cult if indicated+U.LAB.BRZ ordered. EDMS EDMS 17:12 17:12 URINE DRUG SCREEN+UC.LAB.BRZ ordered. EDMS EDMS 17:12 17:12 ETHANOL+C.LAB.BRZ ordered. EDMS EDMS 17:12 17:12 Chest Single View+RAD.RAD.BRZ ordered. EDMS EDMS 17:39 17:12 PTT, ACTIVATED+COAG.LAB.BRZ ordered. EDMS EDMS 20:13 18:56 doctor cp cp 20:13 18:56 [facility] cp cp 20:28 20:13 DR Geiger cp cp 22:28 20:28 DR Geiger cp al5
--- NOTE | 2025-02-13 18:57 | ER ---
Nurse's Notes [facility] Name: Dk Brand Age: 24 yrs Sex: Male : 2000 Arrival Date: 02/13/2025 Time: 16:26 Bed 17 Private MD: Diagnosis: Hematemesis;Anemia, unspecified;GI Bleed/ Gastrointestinal hemorrhage, unspecified Presentation: 02/13 17:12 Chief complaint: Patient states: he has vomited blood twice today and reports kc6 epigastric pain. Coronavirus screen: At this time, the client does not indicate any symptoms associated with coronavirus-19. Ebola Screen: No symptoms or risks identified at this time. Initial Sepsis Screen: Does the patient meet any 2 criteria? HR > 90 bpm. Does the patient have a suspected source of infection? No. Patient's initial sepsis screen is negative. Risk Assessment: Do you want to hurt yourself or someone else? Patient reports no desire to harm self or others. Onset of symptoms was February 13, 2025. Care prior to arrival: IV initiated. 20 GA, in the right antecubital area. 17:12 Method Of Arrival: EMS: [facility] kc6 17:12 Acuity: MANJIT 2 kc6 Historical: - Allergies: 17:14 No Known Allergies; kc6 - PMHx: 17:14 GI bleed; kc6 - PSHx: 17:14 None; kc6 - Immunization history:: Adult Immunizations up to date. - Infectious Disease History:: Denies. - Social history:: Smoking status: Reported history of juuling and/or vaping. Screenin:15 [facility] ED Fall Risk Assessment (Adult) History of falling in the last 3 months, kc6 including since admission No falls in past 3 months (0 pts) Confusion or Disorientation No (0 pts) Intoxicated or Sedated No (0 pts) Impaired Gait No (0 pts) Mobility Assist Device Used No (0 pt) Altered Elimination No (0 pt) Score/Fall Risk Level 0 - 2 = Low Risk Oriented to surroundings, Maintained a safe environment. Abuse screen: Denies threats or abuse. Denies injuries from another. Nutritional screening: No deficits noted. Tuberculosis screening: No symptoms or risk factors identified. Assessment: 17:32 General: Appears in no apparent distress. comfortable, slender, well groomed, well kc6 developed, Behavior is calm, cooperative, appropriate for age. Pain: Complains of pain in epigastric area Pain does not radiate. Pain currently is 3 out of 10 on a pain scale. at worst was 10 out of 10 on a pain scale. Quality of pain is described as burning. Neuro: Level of Consciousness is awake, alert, obeys commands, Oriented to person, place, time, situation, Appropriate for age. Cardiovascular: Capillary refill < 3 seconds. Respiratory: Airway is patent Trachea midline Respiratory effort is even, unlabored, Respiratory pattern is regular, symmetrical. GI: Abdomen is flat, non-distended, Bowel sounds present X 4 quads. Abd is soft X 4 quads Abdomen is tender to palpation in epigastric area Reports upper abdominal pain, nausea, vomiting, Patient currently denies bloody stool, diarrhea. : No signs and/or symptoms were reported regarding the genitourinary system. Urine is clear. EENT: No signs and/or symptoms were reported regarding the EENT system. Derm: No signs and/or symptoms reported regarding the dermatologic system. Skin is intact, is healthy with good turgor, Skin is dry, Skin is jaundiced, pale, Skin temperature is warm. Musculoskeletal: No signs and/or symptoms reported regarding the musculoskeletal system. Circulation, motion, and sensation intact. Range of motion: intact in all extremities. 18:45 Reassessment: Patient appears in no apparent distress at this time. No changes from kc6 previously documented assessment. Patient and/or family updated on plan of care and expected duration. Pain level reassessed. Patient is alert, oriented x 3, equal unlabored respirations, skin warm/dry/pink. 21:43 Reassessment: gave report to shayna zhao. al5 Vital Signs: 17:12 BP 91 / 71; Pulse 106; Resp 18 S; Temp 98.4(O); Pulse Ox 100% on R/A; Height 5 ft. 3 kc6 in. (R); Pain 3/10; 18:45 BP 100 / 61; Pulse 85; Resp 18 S; Pulse Ox 100% on R/A; kc6 19:00 BP 111 / 65; Pulse 86; Resp 16; Pulse Ox 100% ; al5 19:30 BP 108 / 70; Pulse 86; Resp 16; Pulse Ox 100% ; al5 20:00 BP 108 / 70; Pulse 70; Resp 15; Pulse Ox 100% ; al5 20:30 BP 96 / 62; Pulse 90; Resp 15; Pulse Ox 97% ; al5 17:12 Pain Scale: Adult [facility] ED Course: 16:54 Patient arrived in ED. hb 16:57 Juan Shaikh PA is PHCP. cp 16:57 John Bejarano MD is Attending Physician. cp 16:58 Anahi Mays, SHAYNA is Primary Nurse. kc6 17:14 Triage completed. kc6 17:14 Arm band placed on. kc6 17:14 Maintain EMS IV. Dressing intact. Good blood return noted. Site clean \T\ dry. Gauge \T\ isabel 6 site: 20G RAC. Flushed with 10 mL NS. Patient maintains SpO2 saturation greater than 95% on room air. 17:15 Patient has correct armband on for positive identification. Bed in low position. Call [facility] light in reach. Side rails up X 1. Adult w/ patient. Pulse ox on. NIBP on. Door closed. Noise minimized. Lights dimmed. Warm blanket given. Pillow given. Verbal reassurance given. 17:32 Initial lab(s) drawn, by nh, sent to lab. Urine collected: clean catch specimen, clear, [facility] EKG done, by ED staff, reviewed by Juan VEGA. 17:51 XRAY Chest (1 view) In Process Unspecified. EDMS 18:29 CT Abd/Pelvis - IV Contrast Only In Process Unspecified. EDMS 19:11 Report given to Flora Fontaine RN. kc 19:15 Initiated transfer with Lesli at [facility]. rv1 19:26 Lesli called back asking if it would be okay with Juan VEGA that the patient be rv1 placed on bed waiting list. Juan Shaikh asked if we could initiate with [facility]. 20:[address] Geiger to [facility] Rm [id number]. rv1 21:15 Primary Nurse role handed off by Anahi Mays, RN rv1 21:35 Flora Fontaine, SHAYNA is Primary Nurse. al5 22:27 Provided Education on: need for transfer. al5 22:27 No provider procedures requiring assistance completed. Patient transferred, IV remains al5 in place. Administered Medications: 17:40 Drug: NS 0.9% IV 1000 ml IV at 1000 ml once; to be given as a bolus over 60 minutes kc6 Route: IV; Rate: 1000 ml; Site: right antecubital; 18:45 Follow up: Response: No adverse reaction; IV Status: Completed infusion; IV Intake: kc6 1000ml 17:40 Drug: metoCLOPramide IVP 10 mg IVP once; over 1 to 2 minutes Route: IVP; Site: right kc6 antecubital; 18:45 Follow up: Response: No adverse reaction kc6 17:41 Drug: Pantoprazole IVP 40 mg IVP once Route: IVP; Site: right antecubital; kc6 18:45 Follow up: Response: No adverse reaction kc6 19:27 Drug: Pantoprazole IVP 40 mg IVP once Route: IVP; Site: right antecubital; al5 21:45 Follow up: Response: No adverse reaction al5 19:27 Drug: Pantoprazole IV 8 mg/hr IV at 25 ml/hr continuous; (Standard dilution is 80 mg in al5 250 mL NS) Route: IV; Rate: 25 ml/hr; Site: right antecubital; 22:28 Follow up: Response: No adverse reaction; IV Status: Infusion continued upon transfer al5 Medication: 22:27 VIS not applicable for this client. al5 Intake: 18:45 IV: 1000ml; Total: 1000ml. kc6 Outcome: 18:56 ER care complete, transfer ordered by cp 22:28 Transferred by ground EMS EMS. to [facility], al5 22:28 Condition: stable 22:28 Instructed on the need for transfer, 22:28 Patient left the ED. al5 Signatures: Dispatcher [employer] EDMS Juan Shaikh PA PA cp Baxter, Heather, RN RN hb Campbell, Kaitlyn, RN RN [facility] Kassie Goldberg Flora Fontaine RN RN al5
[2025-02-13] MEDS ORDERED: NA CHLORIDE 0.9% 250 ML ONE (19:19)
[2025-02-13 22:51] VITALS: TEMP 98.4
[2025-02-13 23:00] VITALS: BP 96/62; O2SAT 97
[2025-02-14 07:07] LABS: PT Prothrombin Time 13.2; Protime INR 1.1
--- NOTE | 2025-02-16 16:50 | EKG ---
Test Date: 2025-02-13 Test Time: 17:29:44 Patient Portal Representative: HILARIO MEASUREMENT RESULTS: Intervals: Rate: 96 NE: 130 QRSD: 74 QT: 312 QTc: 394 [place]: P: 78 NE: 130 QRS: 80 T: 45 INTERPRETIVE STATEMENTS: Normal sinus rhythm Normal ECG No previous ECG available for comparison Electronically Signed On 02-16-25 16:46:44 CDT by Dilip Gill
== END 2025-02-13 22:28 | disposition short-term general hospital (02) ==
LOC: ER 16:26
DX: D64.9 Anemia, unspecified (principal)
CPT/HCPCS: 36415; 71045; 74177; 80048; 80076; 80307; 81003; 82077; 83735; 84484; 85025; 85610; 85730; 93005; 96361; 96365; 96366; 96375; 99285; J2470; J2765; J7030; J7050; Q9967